=== PATIENT | female | born 1970 | race Caucasian/White ===

== ENCOUNTER → 2017-11-01 | Outpatient (CLI) | payer BC ==
--- NOTE | 2017-11-03 07:05 | MM ---
Reason for exam: screening (asymptomatic). Last mammogram was performed 2 years ago. History: Took hormonal contraceptives for 3 years beginning at age 23. Physical Findings: A clinical breast exam by your physician is recommended on an annual basis and results should be correlated with mammographic findings. MG Screening Mammo w CAD Bilateral CC and MLO view(s) were taken. Prior study comparison: November 13, 2015, bilateral MG screening mammo w CAD. November 04, 2014, bilateral MG screening mammo w CAD. There are scattered fibroglandular densities. There is no discrete abnormality. No significant changes when compared with prior studies. ASSESSMENT: Negative, BI-RAD 1 RECOMMENDATION: Routine screening mammogram of both breasts in 1 year.
== END | disposition home or self-care (01) ==
LOC: RADMAMWWP 09:12
PROVIDERS: ATTEND Obstetrics & Gynecology
DX: Z12.31 Encounter for screening mammogram for malignant neoplasm of breast (principal)
CPT/HCPCS: 77067

== ENCOUNTER → 2018-02-23 | Outpatient (CLI) | payer BC ==
--- NOTE | 2018-02-23 10:38 | US ---
EXAMINATION TYPE: US abdomen complete DATE OF EXAM: 02/23/2018 COMPARISON: NONE CLINICAL HISTORY: R94.5 ABN RESULTS OF LIVER FUNCTIONS. no symptoms, abn lft's EXAM MEASUREMENTS: Liver Length: 21.9 cm Gallbladder Wall: not seen CBD: 0.7 cm Spleen: 11.3 cm Right Kidney: 10.5 x 5.1 x 5.4 cm Left Kidney: 12.6 x 5.7 x 5.8 cm Pancreas: limited views appear wnl Liver: enlarged and difficult to penetrate Gallbladder: unable to visualize GB, patient states she did not have it removed and is NPO Evidence for sonographic Jin's sign: no CBD: upper limits of normal with GB remains, normal for post cholecystectomy Spleen: wnl Right Kidney: wnl Left Kidney: wnl Upper IVC: wnl Abd Aorta: wnl The liver is homogenous. The intrahepatic portion of the IVC and proximal abdominal aorta are within normal limits. The visualized portions of the pancreas are homogenous. The spleen is unremarkable. Kidneys are symmetric and free of hydronephrosis. No renal lesions are seen. IMPRESSION: 1. Nonvisualization of the gallbladder. 2. Hepatosplenomegaly with underlying fatty hepatic infiltration.
== END | disposition home or self-care (01) ==
LOC: RADUSWWP 09:39
PROVIDERS: ATTEND Family Medicine
DX: K76.0 Fatty (change of) liver, not elsewhere classified (principal); R16.2 Hepatomegaly with splenomegaly, not elsewhere classified
CPT/HCPCS: 76700

== ENCOUNTER → 2018-08-27 | Outpatient (CLI) | payer BC ==
--- NOTE | 2018-08-27 10:19 | US ---
EXAMINATION TYPE: US carotid duplex BILAT DATE OF EXAM: 08/27/2018 COMPARISON: NONE CLINICAL HISTORY: R07.89 Chest Pain. left neck pain; non smoker; no history of TIA, CVA or heart cond itions EXAM MEASUREMENTS: RIGHT: Peak Systolic Velocity (PSV) cm/sec ----- Right CCA: 103.1 ----- Right ICA: 91.7 ----- Right ECA: 57.6 ICA/CCA ratio: 0.9 RIGHT: End Diastole cm/sec ----- Right CCA: 33.6 ----- Right ICA: 18.4 ----- Right ECA: 13.4 LEFT: Peak Systolic Velocity (PSV) cm/sec ----- Left CCA: 108.3 ----- Left ICA: 77.2 ----- Left ECA: 91.5 ICA/CCA ratio: 0.7 LEFT: End Diastole cm/sec ----- Left CCA: 31.9 ----- Left ICA: 34.5 ----- Left ECA: 15.0 VERTEBRALS (direction of flow): Right Vertebral: Antegrade Left Vertebral: Antegrade Rhythm: Normal Mild intimal wall thickening is seen in bilateral carotid bifurcation as well as high bifurcations ar e noted. IMPRESSION: 1. No significant hemodynamic stenosis. 2. Intimal thickening. Criteria for Assigning % of Stenosis / Diameter reduction (Estimation based on the indirect measurements of the internal carotid artery velocities (ICA PSV). 1. Normal (no stenosis)=ICA PSV < 125 cm/s: ratio < 2.0: ICA EDV<40 cm/s. 2. Less than 50% stenosis=ICA PSV < 125 cm/s: ratio < 2.0: ICA EDV<40 cm/s. 3. 50 to 69% stenosis=ICA PSV of 125 to 230 cm/s: ration 2.0 ? 4.0: ICA EDV 40-100 cm/s. 4. Greater than 70% stenosis to near occlusion= ICA PSV > 230 cm/s: ratio > 4.0: ICA EDV > 100 cm/s. 5. Near occlusion= ICA PSV velocities may be low or undetectable: variable ratio and ICA EDV. 6. Total occlusion=unable to detect flow.
--- NOTE | 2018-08-27 11:56 | ECHOS ---
STRESS ECHOCARDIOGRAM DATE OF SERVICE: 08/27/2018 INDICATIONS: Chest pain. MEDICATIONS: Lisinopril, atorvastatin, metformin. BASELINE HEART RATE: 83 BASELINE BLOOD PRESSURE: 126/61 MAXIMUM HEART RATE: 180 MAXIMUM BLOOD PRESSURE: 185/50 85% MPHR: 149 100% MPHR: 175 METS: 9.7 MAXIMUM STAGE REACHED: III TOTAL EXERCISE TIME: 8 minutes CLINICAL INFORMATION: STRESS DATA: Pretesting physical examination showed a heart rate of 83, pressure is 126/61 mmHg. Baseline EKG showed sinus rhythm. The patient exercised on the treadmill according to Terry protocol for a total of 8 minutes and achieved 9.7 METs. The max heart rate was 180, which is about 100% of maximum predicted heart rate. Maximum blood pressure was 185/50 mmHg. Clinically, the patient did not have any symptoms of chest pain or discomfort. The EKG did not show any significant ST or T-wave abnormality concerning for ischemia. ECHOCARDIOGRAM IMAGES: On echocardiogram images in parasternal long axis view, parasternal short axis view, apical 4 chamber and apical 2 chamber view were obtained as the baseline images, at the peak of the heart rate, as well as on recovery. The echocardiogram images showed good augmentation in the left ventricular systolic function without any evidence of wall motion abnormalities concerning for ischemia. CONCLUSION: 1. exercise tolerance. 2. Normal EKG in response to exercise. 3. Normal echocardiogram in response to exercise. MMODL / IJN: [id number] /
== END | disposition home or self-care (01) ==
LOC: RADUSMAIN 09:07
PROVIDERS: ATTEND Family Medicine
DX: R07.89 Other chest pain (principal)
CPT/HCPCS: 93351; 93880

== ENCOUNTER → 2018-11-30 | Outpatient (CLI) | payer BC ==
--- NOTE | 2018-12-04 08:42 | MM ---
Reason for exam: screening (asymptomatic). Last mammogram was performed 1 year and 1 month ago. History: Took hormonal contraceptives for 3 years beginning at age 23. Physical Findings: A clinical breast exam by your physician is recommended on an annual basis and results should be correlated with mammographic findings. MG Screening Mammo w CAD Bilateral CC and MLO view(s) were taken. Prior study comparison: November 01, 2017, bilateral MG screening mammo w CAD. November 13, 2015, bilateral MG screening mammo w CAD. No significant changes when compared with prior studies. ASSESSMENT: Benign, BI-RAD 2 RECOMMENDATION: Routine screening mammogram of both breasts in 1 year.
== END | disposition home or self-care (01) ==
LOC: RADMAMWWP 10:15
PROVIDERS: ATTEND Family Medicine
DX: Z12.31 Encounter for screening mammogram for malignant neoplasm of breast (principal)
CPT/HCPCS: 77067

== ENCOUNTER → 2018-12-05 | Outpatient (CLI) | payer BC ==
[2018-12-05 10:07] VITALS: BP 135/84; PULSE 77; RESP 16; TEMP 98.7
[2018-12-05 11:00] LABS: ALT 45 U/L (9-52); AST 30 U/L (14-36); Albumin 4.5 g/dL (3.5-5.0); Alkaline Phosphatase 101 U/L (38-126); Anion Gap 12 mmol/L; Blood Urea Nitrogen 10 mg/dL (7-17); Calcium 9.4 mg/dL (8.4-10.2); Carbon Dioxide 23 mmol/L (22-30); Chloride 104 mmol/L (98-107); Glucose 227 mg/dL (74-99); Potassium 4.5 mmol/L (3.5-5.1); Sodium 139 mmol/L (137-145); Total Bilirubin 0.7 mg/dL (0.2-1.3)
== END ==
LOC: PROCWHC3 09:26
PROVIDERS: ATTEND Internal Medicine Endocrinology, Diabetes & Metabolism
DX: D35.02 Benign neoplasm of left adrenal gland (principal)
CPT/HCPCS: 36415; 80053; 82088; 83835; 84244

== ENCOUNTER → 2018-12-28 | Outpatient (CLI) | payer BC ==
--- NOTE | 2018-12-28 10:56 | US ---
EXAMINATION TYPE: US abdomen complete DATE OF EXAM: 12/28/2018 COMPARISON: Ultrasound 02/23/2018 CLINICAL HISTORY: R10.10 Upper abd pain. LUQ pain. NPO. Patient states that in 1992 she had gallsto josie removed but doesn't remember if the entire GB was removed. Previous ultrasound was unable to vis ualized GB. EXAM MEASUREMENTS: Liver Length: 22.2 cm CBD: 0.6 cm CHD: 0.5 cm Spleen: 10.0 cm Right Kidney: 10.8 x 6.1 x 4.4 cm Left Kidney: 12.5 x 5.0 x 5.1 cm Pancreas: Difficult to visualize due to overlying bowel gas Liver: Increased attenuation, decreased visualization of vessels suggestive of fatty infiltrate. Ap pears enlarged in size and coarse. Gallbladder: Unable to visualize, could be surgically removed due to patient history Evidence for sonographic Jin's sign: neg CBD: wnl CHD: wnl Spleen: wnl Right Kidney: wnl Left Kidney: wnl Upper IVC: wnl Abd Aorta: No AAA visualized There is no ascites. Cortical medullary differentiation is maintained. Exam is limited. IMPRESSION: Hepatomegaly, correlate for hepatic steatosis, limited exam. Postcholecystectomy change
== END ==
LOC: RADUSWWP 09:00
PROVIDERS: ATTEND Family Medicine
DX: R16.0 Hepatomegaly, not elsewhere classified (principal)
CPT/HCPCS: 76700

== ENCOUNTER → 2019-10-07 | Outpatient (CLI) | payer BC ==
--- NOTE | 2019-10-07 16:06 | XR ---
EXAMINATION TYPE: XR abdomen 1V DATE OF EXAM: 10/07/2019 COMPARISON: NONE HISTORY: Pain TECHNIQUE: Single supine KUB image of the abdomen is obtained FINDINGS: Small bowel demonstrates no evidence for dilatation or air fluid levels. Gas and fecal material is seen in non-distended colon. No convincing evidence for pneumoperitoneum. No unusual calcifications. The lung bases are clear. The osseous structures are intact. IMPRESSION: 1. Overall nonobstructive bowel gas pattern.
== END | disposition home or self-care (01) ==
LOC: RADXRMAIN 15:43
PROVIDERS: ATTEND Nurse Practitioner Family
DX: R10.32 Left lower quadrant pain (principal)
CPT/HCPCS: 74018